=== PATIENT | female | born 1925 | race Caucasian/White ===

== ENCOUNTER 2016-10-07 20:52 | Emergency (ER) | payer MEDICARE, BC ==
--- NOTE | 2016-10-07 21:10 | Emergency Department Record ---
History of Present Illness - General Chief Complaint: Headache Migraine Stated Complaint: SHARMA Time Seen by Provider: 10/07/16 21:08 Source: Patient Mode of Arrival: Ambulatory Limitations: No limitations - History of Present Illness Initial Comments: 89 yo female presents with a headache. She states she has had headaches her entire life since being a child. She states her headaches never completely go away. The headaches has increased the last 2 weeks. She states the headache is on the right side and the scalp has been tender the last 2 weeks. Her PCP gave her Tylenol with Codeine. She has taken 10 tablets over the two weeks but the pain continues. No NV. No vision changes. No dizziness or syncope. MD Complaint: Headache -: Year(s) Onset Description: Gradual Location: Other (scalp) Quality: Aching Consistency: Constant Improves With: Nothing Worsens With: None Associated Symptoms: Other Treatments Prior to Arrival: Acetaminophen - Related Data Home Medications Medication Instructions Recorded Confirmed Last Taken Aspirin/Calcium Carbonate/Mag 325 mg PO DAILY 08/29/14 10/07/16 09/25/14 [Aspirin Buffered 325 mg Tab] Gabapentin [Gabapentin] 1 tab PO QID 08/29/14 10/07/16 09/26/14 08:00 Lisinopril [Zestril] 5 mg PO DAILY 10/07/16 10/07/16 Unknown Previous Rx's Medication Instructions Recorded Prednisone [Prednisone 20Mg] 20 mg PO BID #14 tab 10/07/16 Allergies Allergy/AdvReac Type Severity Reaction Status Date / Time ascorbic acid Allergy Unknown NAUSEA AND Verified 09/26/14 10:56 [From CHOLESTEROL MANAGEMENT] VOMITING guggulsterone Allergy Unknown NAUSEA AND Verified 09/26/14 10:56 [From CHOLESTEROL MANAGEMENT] VOMITING iodine [IODINE] Allergy Unknown NAUSEA AND Verified 09/26/14 10:56 VOMITING meperidine [MEPERIDINE] Allergy Unknown PT UNSURE Verified 09/26/14 10:56 OF REACTION niacinamide Allergy Unknown PT UNSURE Verified 09/26/14 10:56 [From CHOLESTEROL MANAGEMENT] OF REACTION NSAIDS (Non-Steroidal Allergy Unknown PT UNSURE Verified 09/26/14 10:56 Anti-Inflamma OF REACTION [NSAIDS] oats Allergy Unknown PT UNSURE Verified 09/26/14 10:56 [From CHOLESTEROL MANAGEMENT] OF REACTION phytosterol Allergy Unknown PT UNSURE Verified 09/26/14 10:56 [From CHOLESTEROL MANAGEMENT] OF REACTION FISH OIL Allergy Unknown PT UNSURE Uncoded 09/26/14 10:56 OF REACTION From CHOLESTEROL MANAGEMENT Allergy Unknown PT UNSURE Uncoded 09/26/14 10:56 OF REACTION Review of Systems Constitutional: Denies: Chills, Fever, Malaise, Weakness Eyes: Denies: Eye discharge, Eye pain, Photophobia, Vision change ENT: Denies: Congestion, Throat pain Respiratory: Denies: Cough, Dyspnea, Hemoptysis, Stridor, Wheezes Cardiovascular: Denies: Chest pain, Syncope Endocrine: Denies: Fatigue Gastrointestinal: Denies: Abdominal pain, Diarrhea, Nausea, Vomiting Genitourinary: Denies: Dyspareunia, Dysuria Musculoskeletal: Denies: Arthralgia, Back pain, Myalgia, Neck pain Skin: Denies: Bruising, Change in color, Rash Neurological: Reports: Headache. Denies: Abnormal gait, Confusion, Numbness, Seizure, Tingling, Tremors, Vertigo, Weakness Psychiatric: Denies: Anxiety Hematological/Lymphatic: Denies: Blood Clots, Easy bleeding, Easy bruising, Swollen glands Past Medical History - SOCIAL HISTORY Smoking Status: Never smoker - RESPIRATORY Hx Respiratory Disorders: No - CARDIOVASCULAR Hx Cardio Disorders: Yes Hx Abnormal EKG: Yes Hx Cardiac Cath: Yes Hx Deep Vein Thrombosis: Yes Hx Irregular Heartbeat: Yes Hx Vascular Disease: Yes - NEURO Hx Neuro Disorders: Yes Hx Headaches: Yes (Migraines) - GI Hx GI Disorders: No - Hx Genitourinary Disorders: No - ENDOCRINE Hx Endocrine Disorders: No - MUSCULOSKELETAL Hx Musculoskeletal Disorders: Yes Hx Arthritis: Yes (Back) - PSYCH Hx Psych Problems: No - HEMATOLOGY/ONCOLOGY Hx Hematology/Oncology Disorders: No Family Medical History Hx Heart Disease: Father, Brother/Sister Physical Exam - General General Appearance: Alert, Oriented x3, Cooperative, No acute distress Limitations: No limitations - Head Head exam: Atraumatic, Normocephalic, Normal inspection Head exam detail: Tenderness of temporal artery (right sided), Other (Normal inspection). negative: Abrasion, Contusion - Eye Eye exam: Normal appearance, PERRL. negative: Conjunctival injection, Periorbital swelling, Scleral icterus - ENT ENT exam: Normal exam, Mucous membranes moist, Normal external ear exam, Normal orophraynx, TM's normal bilaterally Ear exam: Normal external inspection. negative: External canal tenderness Nasal Exam: Normal inspection. negative: Discharge, Sinus tenderness Mouth exam: Normal external inspection, Tongue normal Teeth exam: Normal inspection. negative: Dental caries Throat exam: Normal inspection. negative: Tonsillar erythema, Tonsillar exudate - Neck Neck exam: Normal inspection, Full ROM. negative: Tenderness - Respiratory Respiratory exam: Normal lung sounds bilaterally. negative: Respiratory distress - Cardiovascular Cardiovascular Exam: Regular rate, Normal rhythm, Normal heart sounds Peripheral Pulses: 2+: Radial (R), Radial (L) - GI/Abdominal GI/Abdominal exam: Soft. negative: Tenderness - Rectal Rectal exam: Deferred - exam: Deferred - Extremities Extremities exam: Normal inspection, Full ROM, Normal capillary refill. negative: Tenderness - Back Back exam: Reports: Normal inspection, Full ROM. Denies: Muscle spasm, Rash noted, Tenderness - Neurological Neurological exam: Alert, CN II-XII intact, Normal gait, Oriented X3. negative : Abnormal gait, Altered, Motor sensory deficit - Psychiatric Psychiatric exam: Normal affect, Normal mood - Skin Skin exam: Dry, Intact, Normal color, Warm Course Vital Signs 10/07/16 21:03 Temperature 98.1 F Pulse Rate [ 68 Pulse Ox Probe] Respiratory 20 Rate Blood Pressure 173/87 [Right Arm] Pulse Ox 96 - Reevaluation(s) Reevaluation #1: The patient is feeling much improved CBC and CMP without acute changes. 10/07/16 21:59 Reevaluation #2: The head CT was negative for acute process 10/07/16 22:14 Reevaluation #3: The CRP is 1.8 and ESR is 22 I explained to her she will need to see her doctor this week for a recheck and possible artery biopsy She is very comfortable with well controlled pain and ready for DC home at this time. 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 given the tender area on your scalp Return if worse, fever, dizzy or concerns Take the Prednisone daily until your doctor tells you to stop Prescriptions: Prednisone [Prednisone 20Mg] 20 mg PO BID #14 tab Forms: Patient Portal Access Time of Disposition: 22:37 Quality - Quality Measures Quality Measures: N/A - Blood Pressure Screening View Details: Yes Does Patient Have Any of the Following: No Blood Pressure Classification: Hypertensive Reading Systolic Measurement: 154 Diastolic Measurement: 71 Screening for High Blood Pressure: < Pre-Hypertensive BP, F/U Documented > [ [id number]] Pre-Hypertensive Follow-up Interventions: Referral to alternative/primary care provider.
[2016-10-07] MEDS ORDERED: ACETAMINOPHEN 1,000 MG/100 ML BTL IVPB ONE (21:22)
[2016-10-07] MEDS ORDERED: DEXAMETHASONE SOD PHOSPHATE 10MG/ML VIAL IVP ONE (21:22)
[2016-10-07 21:42] LABS: BASO % 0.6 % (0-6); EOS % 5.4 % (0-6); GRAN % 52.3 % (47-80); HEMATOCRIT 39.4 % (35.0-47.0); HEMOGLOBIN 12.6 gm/dl (11.6-16.0); MEAN CELL VOLUME 91.4 fl (81-97); MEAN CORPUSCULAR HEMOGLOBIN 29.2 pg (27-33); MEAN PLATELET VOLUME 10.9 fl (7.4-10.4); MONO % 10.7 % (0-9); PLATELET COUNT 347 K/uL (130-400); RED BLOOD COUNT 4.31 M/uL (3.80-5.40); RED CELL DISTRIBUTION WIDTH 14.9 % (11.5-14.5); WHITE BLOOD COUNT W/O DIFF 8.2 K/uL (4.2-12.2)
[2016-10-07 21:52] LABS: ALB/GLOB RATIO 1.5 (1.1-1.8); ALBUMIN 4.1 gm/dL (3.5-5.0); ALKALINE PHOSPHATASE 136 U/L (38-126); ALT/SGPT 35 U/L (9-52); AST/SGOT 32 U/L (14-36); BLOOD UREA NITROGEN 18 mg/dL (7-17); CREATININE 0.9 mg/dL (0.52-1.04); EST GLOMERULAR FILTRATION RATE > 60 ml/min; GLUCOSE,RANDOM 109 mg/dL (70-110); TOTAL PROTEIN 6.9 gm/dL (6.3-8.2)
[2016-10-07 22:17] LABS: ERYTHROCYTE SEDIMENTATION RATE 22 mm/hr (0-30)
[2016-10-07 22:29] LABS: C-REACTIVE PROTEIN 1.8 mg/dL (0.0-0.9)
--- NOTE | 2016-10-09 20:16 | CT SCAN REPORT ---
EXAM: CT SCAN HEAD WO CONTRAST HISTORY: HEADACHE. TECHNIQUE: CT brain without contrast. COMPARISON: Prior CT brain 09/26/14. FINDINGS: The globes are intact. Paranasal sinuses and mastoid air cells are unremarkable. No displaced or depressed skull fracture. No intra or extraaxial hemorrhage. CT limited for the evaluation of acute infarct. No CT evidence for large or territorial acute infarct. No mass or midline shift. Diffuse atrophy with small vessel ischemic change. IMPRESSION: ATROPHY. SMALL VESSEL ISCHEMIC CHANGE. JOB NUMBER: [id number] [facility]
== END 2016-10-07 22:51 | disposition home or self-care (01) ==
LOC: ER 20:52
DX: R51 Headache (principal); R11.0 Nausea
CPT/HCPCS: 99284 ×2; 96365; 96375; 85025; 85651; 86140; 80053; 70450; J1100